=== PATIENT | male | born 1995 | race Asian ===

== ENCOUNTER 2017-11-14 19:30 | Emergency (ER) | payer OTHER ==
--- NOTE | 2017-11-14 19:52 | EDPHY ---
H & P Stated Complaint: COUGH FEVER AND RUNNY NOSE HPI/ROS: HPI CHIEF COMPLAINT: Cough, fever, "I think I have the flu " HISTORY OF PRESENT ILLNESS: This patient is a 22-year-old male, he is otherwise healthy with no significant medical history does not take any daily medications he presents emergency room with flu-like illness times 48 hr. Patient reports to me that he has been feeling ill for the past 48 hr. Subjective fever. As well as nausea but no vomiting. A dry cough but nonproductive. Denies any pain anywhere. Past Medical History: No significant medical history Past Surgical History: No significant surgical history Social History: [employer] student, denies daily use drugs alcohol tobacco products. From [place]. Family History: Noncontributory ROS REVIEW OF SYSTEMS: A comprehensive 10 point review of systems is otherwise negative aside from elements mentioned in the history of present illness. Exam Constitutional appears well nontoxic triage nursing summary reviewed, vital signs reviewed, awake/alert. Tachycardic at triage Eyes normal conjunctivae and sclera, EOMI, PERRLA. HENT normal inspection, atraumatic, moist mucus membranes, no epistaxis, neck supple/ no meningismus, no raccoon eyes. Respiratory clear to auscultation bilaterally, normal breath sounds, no respiratory distress, no wheezing. Cardiovascular tachycardic, regular rhythm, no murmur, no edema, distal pulses normal. Gastrointestinal soft, non-tender, no rebound, no guarding, normal bowel sounds, no distension, no pulsatile mass. Genitourinary no CVA tenderness. Musculoskeletal no midline vertebral tenderness, full range of motion, no calf swelling, no tenderness of extremities, no meningismus, good pulses, neurovascularly intact. Skin pink, warm, & dry, no rash, skin atraumatic. Neurologic awake, alert and oriented x 3, AAOx3, moves all 4 extremities equally, motor intact, sensory intact, CN II-XII intact, normal cerebellar, normal vision, normal speech. Psychiatric normal mood/affect. Heme/Lymph/Immune no lymphadenopathy. Differential Diagnosis: Includes but is not limited to in a particular order, acute influenza, dehydration, electrolyte disturbance, viral syndrome, upper respiratory tract infection, pneumonia Medical Decision Making: Plan for this patient rapid flu test. P.o. fluids. Fever control with Tylenol Motrin. Tamiflu if positive. Re-evaluation: Patient is positive for flu A. Tamiflu provided here in the emergency room. Tamiflu prescription I do feel this patient go home he is not hypoxic he does not appear ill. He is hemodynamically stable. In no acute distress. Return precautions discussed with the patient. Source: Patient - Personal History Current Tetanus/Diphtheria Vaccine: Yes Current Tetanus Diphtheria and Acellular Pertussis (TDAP): Yes Tetanus Vaccine Date: < 10 YEARS - Medical/Surgical History Hx Asthma: No Hx Chronic Respiratory Disease: No Hx Diabetes: No Hx Cardiac Disease: No Hx Renal Disease: No Hx Cirrhosis: No Hx Alcoholism: No Hx HIV/AIDS: No Hx Splenectomy or Spleen Trauma: No Other PMH: ADHD - Social History Smoking Status: Current some day smoker Constitutional: Initial Vital Signs Temperature (C) 38.2 C 11/14/17 19:31 Heart Rate 126 H 11/14/17 19:31 Respiratory Rate 18 11/14/17 19:31 Blood Pressure 124/80 H 11/14/17 19:31 O2 Sat (%) 95 11/14/17 19:31 O2 Delivery Mode Room Air Allergies/Adverse Reactions: No Known Allergies Allergy (Unverified 11/14/17 19:36) Home Medications: Medication Instructions Recorded Oseltamivir Phosphate [Tamiflu 75 75 mg PO BID #10 cap 11/14/17 mg (*)] Medical Decision Making - Data Points Laboratory Results: 11/14/17 19:35 Nasal Influenza A PCR FLU A DETECTED H (NEGATIVE) Nasal Influenza B PCR NEGATIVE FOR FLU B (NEGATIVE) Departure - Departure Disposition: Home, Routine, Self-Care Clinical Impression: Influenza Condition: Good Instructions: Influenza (ED) Additional Instructions: 1. Drink lots of fluids stay well-hydrated. 2. Alternate Tylenol and Motrin every 4-6 hours for fever and pain control. 3. Tamiflu as prescribed. 4. Return emergency room if there is worsening symptoms questions or concerns. Referrals: NONE *PRIMARY CARE P,. [Primary Care Provider] - As per Instructions Prescriptions: Oseltamivir Phosphate [Tamiflu 75 mg (*)] 75 mg PO BID #10 cap
[2017-11-14] MEDS ORDERED: OSELTAMIVIR PHOSPHATE 75 MG CAP ONE (20:41)
[2017-11-14] MEDS ORDERED: OSELTAMIVIR PHOSPHATE 75 MG CAP PO ONE (20:42)
[2017-11-14 20:48] VITALS: BP 118/75; PULSE 88; RESP 16; TEMP 99.9; O2SAT 96
== END 2017-11-14 20:48 | disposition home or self-care (01) ==
DX: J10.1 Influenza due to other identified influenza virus with other respiratory manifestations (principal); F17.200 Nicotine dependence, unspecified, uncomplicated